=== PATIENT | male | born 1940 | race Caucasian/White ===

== ENCOUNTER → 2016-10-19 | Outpatient (CLI) | payer MEDICARE ==
[2016-10-19 11:47] LABS: PROTHROMBIN TIME 25.6 SEC (11.4-15.4)
== END ==
LOC: OD 10:45
PROVIDERS: ATTEND Specialist
DX: I48.91 Unspecified atrial fibrillation (principal); Z79.01 Long term (current) use of anticoagulants
CPT/HCPCS: 36415; 85610

== ENCOUNTER → 2016-11-19 | Outpatient (CLI) | payer MEDICARE ==
[2016-11-19 12:32] LABS: PROTHROMBIN TIME 30.5 SEC (11.4-15.4)
== END ==
LOC: OD 11:10
PROVIDERS: ATTEND Specialist
DX: I48.91 Unspecified atrial fibrillation (principal); Z79.01 Long term (current) use of anticoagulants
CPT/HCPCS: 36415; 85610

== ENCOUNTER → 2016-12-18 | Outpatient (CLI) | payer MEDICARE | LOC: OD 16:54 | PROVIDERS: ATTEND Specialist | DX: Z79.01 Long term (current) use of anticoagulants (principal) | CPT/HCPCS: 36415; 85610 ==

== ENCOUNTER → 2016-12-30 | Outpatient (CLI) | payer MEDICARE ==
[2016-12-30 11:45] LABS: PROTHROMBIN TIME 26.2 SEC (11.4-15.4)
== END ==
LOC: OD 11:02
PROVIDERS: ATTEND Specialist
DX: Z51.81 Encounter for therapeutic drug level monitoring (principal); Z79.01 Long term (current) use of anticoagulants
CPT/HCPCS: 36415; 85610

== ENCOUNTER → 2017-01-05 | Outpatient (CLI) | payer MEDICARE | LOC: OD 10:57 | PROVIDERS: ATTEND Specialist | DX: Z79.01 Long term (current) use of anticoagulants (principal) | CPT/HCPCS: 36415; 85610 ==

== ENCOUNTER → 2017-01-14 | Outpatient (CLI) | payer MEDICARE | LOC: OD 11:32 | PROVIDERS: ATTEND Specialist | DX: Z79.01 Long term (current) use of anticoagulants (principal) | CPT/HCPCS: 36415; 85610 ==

== ENCOUNTER → 2017-02-12 | Outpatient (CLI) | payer MEDICARE ==
[2017-02-12 11:01] LABS: PROTHROMBIN TIME 29.6 SEC (11.4-15.4)
== END ==
LOC: OD 09:31
PROVIDERS: ATTEND Specialist
DX: Z79.01 Long term (current) use of anticoagulants (principal)
CPT/HCPCS: 36415; 85610

== ENCOUNTER → 2017-03-02 | Outpatient (CLI) | payer MEDICARE ==
[2017-03-02 12:30] LABS: PROTHROMBIN TIME 21.5 SEC (11.4-15.4)
== END ==
LOC: OD 11:01
PROVIDERS: ATTEND Specialist
DX: Z79.01 Long term (current) use of anticoagulants (principal); Z51.81 Encounter for therapeutic drug level monitoring
CPT/HCPCS: 36415; 85610

== ENCOUNTER → 2017-03-25 | Outpatient (CLI) | payer MEDICARE ==
[2017-03-25 13:11] LABS: PROTHROMBIN TIME 24.6 SEC (11.4-15.4)
== END ==
LOC: OD 11:54
PROVIDERS: ATTEND Specialist
DX: Z79.01 Long term (current) use of anticoagulants (principal)
CPT/HCPCS: 36415; 85610

== ENCOUNTER → 2017-04-23 | Outpatient (CLI) | payer MEDICARE ==
[2017-04-23 08:54] LABS: PROTHROMBIN TIME 28.8 SEC (11.4-15.4)
== END ==
LOC: OD 07:47
PROVIDERS: ATTEND Specialist
DX: Z79.01 Long term (current) use of anticoagulants (principal)
CPT/HCPCS: 36415; 85610

== ENCOUNTER → 2017-05-24 | Outpatient (CLI) | payer MEDICARE ==
[2017-05-24 12:04] LABS: PROTHROMBIN TIME 21.7 SEC (11.4-15.4)
== END ==
LOC: OD 10:23
PROVIDERS: ATTEND Specialist
DX: Z51.81 Encounter for therapeutic drug level monitoring (principal); Z79.01 Long term (current) use of anticoagulants
CPT/HCPCS: 36415; 85610

== ENCOUNTER → 2017-06-25 | Outpatient (CLI) | payer MEDICARE ==
[2017-06-25 15:05] LABS: PROTHROMBIN TIME 25.8 SEC (11.4-15.4)
== END ==
LOC: OD 13:42
PROVIDERS: ATTEND Specialist
DX: Z79.01 Long term (current) use of anticoagulants (principal)
CPT/HCPCS: 36415; 85610

== ENCOUNTER → 2017-07-27 | Outpatient (CLI) | payer MEDICARE ==
[2017-07-27 10:52] LABS: PROTHROMBIN TIME 28.4 SEC (11.4-15.4)
== END ==
LOC: OD 09:55
PROVIDERS: ATTEND Specialist
DX: Z79.01 Long term (current) use of anticoagulants (principal)
CPT/HCPCS: 36415; 85610

== ENCOUNTER → 2017-08-25 | Outpatient (CLI) | payer MEDICARE ==
[2017-08-25 12:53] LABS: PROTHROMBIN TIME 24.3 SEC (11.4-15.4)
== END ==
LOC: OD 12:05
PROVIDERS: ATTEND Specialist
DX: Z51.81 Encounter for therapeutic drug level monitoring (principal); Z79.01 Long term (current) use of anticoagulants
CPT/HCPCS: 36415; 85610

== ENCOUNTER → 2017-09-20 | Outpatient (CLI) | payer MEDICARE ==
[2017-09-20 15:07] LABS: INTERNATIONAL RATION (INR) 2.42; PROTHROMBIN TIME 27.6 SEC (11.4-15.4)
== END ==
LOC: OD 14:03
PROVIDERS: ATTEND Specialist
DX: I48.0 Paroxysmal atrial fibrillation (principal); Z79.01 Long term (current) use of anticoagulants
CPT/HCPCS: 36415; 85610